=== PATIENT | male | born 1980 | race Caucasian/White ===

== ENCOUNTER 2016-11-04 18:24 | Emergency (ER) | payer SELFPAY ==
[2016-11-04] MEDS ORDERED: ADACEL TDaP IM ONE ×2 (18:31→18:33)
[2016-11-04] MEDS ORDERED: XYLOCAINE 1% and EPINEPHRINE 1:100,000 IM ONE (18:34)
[2016-11-04 18:35] VITALS: BP 163/112; BMI 36.6
[2016-11-04] MEDS ORDERED: XYLOCAINE 2% and EPINEPHRINE 1:100,000 ONE (18:39)
[2016-11-04] MEDS ORDERED: XYLOCAINE 2% and EPINEPHRINE 1:100,000 IM SCH (19:00)
--- NOTE | 2016-11-04 19:31 | DR.LACERAT ---
HPI - Time Seen Time seen: 18:50 - Primary Care Physician Primary Care Physician: SHEREEN WARD - Complaints Chief Complaint Doctors Comments: Patient foot on piece of glass today Chief Complaint:: CUT TO LEFT FOOT Self Treatment fo Chief Complaint: PRESSURE TO LACERATION AREA - Source History Provided: Patient - Mode of Arrival Mode of Arrival: Wheelchair - Timing Onset of Chief Complaint: 11/04/16 PMH - PMH Past Medical History: Yes Past Medical History: Hypertension Past Surgical History: Yes Surgical History: Spleenectomy - Family History History of Family Medical Conditions: Yes Family Medical History: Diabetes Mellitus, Cancer - Social History Does patient currently use any type of tobacco product: Yes Have you used tobacco products in the last 12 months: Yes Type of Tobacco Use: Cigarettes Does any household member use tobacco: Yes Alcohol Use: None Do you use any recreational Drugs:: No Lives With: Spouse Lives Where: Home - infectious screening In the last 2 months have you had wt loss of >10#?: NO Have you had fever, night sweats or hemotysis?: No Have you traveled outside the country in the last 6 months?: No Isolation: Standard ROS - Review of Systems Eyes: No Symptoms Reported ENTM: No Symptoms Reported Respiratoy: No Symptoms Reported Cardiovascular: No Symptoms Reported Gastrointestinal/Abdominal: No Symptoms Reported Genitourinary: No Symptoms Reported Neurological: No Symptoms Reported Musculoskeletal: No Symptoms Reported Integumentary: Wound (5cm superficial laceration to dorsum of left foot) Endocrine: No Symptoms Reported Psychiatric: No Symptoms Reported All Other Systems: Reviewed and Negative PE - Vital Signs Vitals: Pulse Rate 81 Respiratory Rate 16 Blood Pressure 163/112 O2 Sat by Pulse Oximetry 98 - General Limitations: No Limitations General Appearance: Alert, In No Apparent Distress - Head Head Exam: Normal Inspection, Atraumatic - Eyes Eye exam: Normal Appearance, PERRL, EOMI - ENT ENT Exam: Normal Exam - Neck Neck Exam: Normal Inspection, Full ROM - Chest Chest Inspection: Normal Inspection - Respiratory Respiratory Exam: Normal Lung Sounds Bilat Respiratory Exam: Bilateral Clear to Auscultation - Cardiovascular Cardiovascular Exam: Regular Rate - Abdominal Exam Abdominal Exam: Normal Inspection Abdominal Tenderness: negative: RUQ, RLQ, LUQ, LLQ, Epigastrium, Suprapubic, Diffuse, Mild, Moderate, Severe, Other - Extremities Extremities Exam: Other (left dorsum of foot with a 5cm superficial laceration) - Back Back Exam: Normal Inspection, Full ROM - Neurologic Neurological Exam: Alert, Oriented X3, CN II-XII Intact - Psychiatric Psychiatric Exam: Normal Affect, Normal Mood - Skin Skin Exam: Warm, Dry. negative: Intact (laceration of left foot) Type of Lesion: negative: Rash Course - Reevaluation 1st: Improved Procedures - Laceration/Wound Repair Left Wound Length (cm): 5 Wound's Depth, Shape: Superficial, Linear Anesthesia: 1% Lidocaine w/ Epi Wound Repaired With: sutures Suture Size/Type: 4:0, 3:0, Ethilion, Vicryl Number of Sutures: 6 Layer Closure?: Yes (3-0 vicryl #6) - Diagnosis Discharge Problem: Laceration of foot Qualifiers: Encounter type: initial encounter Laterality: left Qualified Code(s): S91.312A - Laceration without foreign body, left foot, initial encounter - Discharge Plan Condition: Stable - Follow ups/Referrals Follow ups/Referrals: DAVID WARD [Primary Care Provider] - 3 days - Instructions Instructions: Laceration Care, Adult
== END 2016-11-04 19:38 | disposition home or self-care (01) ==
LOC: ER 18:39
PROC: 0YQN0ZZ Repair Left Foot, Open Approach (ICD-10-PCS; principal; 2016-11-04)
DX: S91.312A Laceration without foreign body, left foot, initial encounter (principal); W25.XXXA Contact with sharp glass, initial encounter; Y92.9 Unspecified place or not applicable
CPT/HCPCS: 12002; 90471; 96365; 99282; 99283; J2001